=== PATIENT | female | born 1960 | race Caucasian/White ===

== ENCOUNTER 2017-05-25 03:51 | Emergency (ER) | payer OTHER ==
[2017-05-25] MEDS ORDERED: TORADOL IV ONE (04:11)
[2017-05-25] MEDS ORDERED: ZOFRAN IV ONE (04:11)
[2017-05-25 04:59] LABS: Anion Gap 19 mmol/L; BUN/Creatinine Ratio 30; Blood Urea Nitrogen 15 mg/dL (7-17); Calcium 8.9 mg/dL (8.4-10.2); Carbon Dioxide 24 mmol/L (22-30); Glucose 95 mg/dL (65-100); Potassium 3.8 mmol/L (3.6-5.0); Sodium 141 mmol/L (137-145)
[2017-05-25 05:01] LABS: Bilirubin,Urine NEG (Negative); Blood,Urine MOD (Negative); Ketones,Urine NEG (Negative); Leukocyte Esterase,Urine NEG (Negative); Mucus,Urine FEW /HPF; Nitrite,Urine NEG (Negative); Protein,Urine <15 mg/dL mg/dL (Negative); Urobilinogen,Urine < 2.0 mg/dL (<2.0)
[2017-05-25 05:08] LABS: Basophils % (Auto) 0.4 % (0.0-1.8); Eosinophils % (Auto) 3.2 % (0.0-4.3); Hematocrit 38.2 % (30.3-42.9); Hemoglobin 12.8 gm/dl (10.1-14.3); Mean Corpuscular HGB Conc 33 % (30-34); Mean Corpuscular Hemoglobin 29 pg (28-32); Mean Corpuscular Volume 88 fl (79-97); Platelet Count 217 K/mm3 (140-440); Red Blood Count 4.35 M/mm3 (3.65-5.03); Red Cell Distribution Width 13.3 % (13.2-15.2); White Blood Count 5.9 K/mm3 (4.5-11.0)
--- NOTE | 2017-05-25 10:08 | Emergency Department Report ---
ED Abdominal Pain HPI - General Chief Complaint: Abdominal Pain Stated Complaint: L SIDE SHARP PAIN Time Seen by Provider: 05/25/17 10:06 Source: patient Mode of arrival: Ambulatory Limitations: No Limitations - History of Present Illness Initial Comments: Patient states that she has arthritic pain which affects her right shoulder and her neck. She states this pain feels like it but is never affected her left flank. She complains of soreness in the left flank and right flank which she states is worse after eating but not associated with nausea and vomiting. He also states it's worse on movement. She's had no fever or chills. She denies any urinary symptoms. The pain is nonradiating. She also has lower back discomfort towards the middle of the back. MD Complaint: flank pain -: Gradual, days(s) Location: L flank, R flank Radiation: none Migration to: no migration Severity: moderate Severity scale (0 -10): 10 Quality: aching Consistency: constant Improves With: nothing Worsens With: movement Associated Symptoms: denies other symptoms - Related Data Previous Rx's Medication Instructions Recorded Last Taken Type traMADol [Ultram] 50 mg PO Q6HR PRN #14 tablet 05/25/17 Unknown Rx Allergies Allergy/AdvReac Type Severity Reaction Status Date / Time No Known Allergies Allergy Verified 05/25/17 10:12 ED Review of Systems ROS: Stated complaint: L SIDE SHARP PAIN Other details as noted in HPI Constitutional: denies: chills, fever Eyes: denies: eye pain, eye discharge, vision change ENT: denies: ear pain, throat pain Respiratory: denies: cough, shortness of breath, wheezing Cardiovascular: denies: chest pain, palpitations Endocrine: no symptoms reported Gastrointestinal: denies: abdominal pain, nausea, diarrhea Genitourinary: denies: urgency, dysuria, discharge Musculoskeletal: as per HPI, back pain. denies: joint swelling, arthralgia Skin: denies: rash, lesions Neurological: denies: headache, weakness, paresthesias Psychiatric: denies: anxiety, depression Hematological/Lymphatic: denies: easy bleeding, easy bruising ED Past Medical Hx - Past Medical History Previous Medical History?: No - Surgical History Additional Surgical History: Hysterectomy, Hernia Repair - Social History Smoking Status: Never Smoker Substance Use Type: None - Medications Home Medications: Home Medications Medication Instructions Recorded Confirmed Last Taken Type traMADol [Ultram] 50 mg PO Q6HR PRN #14 tablet 05/25/17 Unknown Rx ED Physical Exam - General Limitations: No Limitations General appearance: alert, in no apparent distress - Head Head exam: Present: atraumatic, normocephalic - Eye Eye exam: Present: normal appearance. Absent: scleral icterus - ENT ENT exam: Present: mucous membranes moist - Neck Neck exam: Present: normal inspection. Absent: tenderness, meningismus - Respiratory Respiratory exam: Present: normal lung sounds bilaterally. Absent: respiratory distress - Cardiovascular Cardiovascular Exam: Present: regular rate, normal rhythm. Absent: systolic murmur, diastolic murmur, rubs, gallop - GI/Abdominal GI/Abdominal exam: Present: soft, normal bowel sounds. Absent: distended, tenderness, guarding, rebound, rigid - Extremities Exam Extremities exam: Present: normal inspection, normal capillary refill. Absent: tenderness, pedal edema, joint swelling, calf tenderness - Back Exam Back exam: Present: normal inspection, paraspinal tenderness, other (straight leg raise negative bilaterally). Absent: CVA tenderness (R), CVA tenderness (L) , muscle spasm, vertebral tenderness - Neurological Exam Neurological exam: Present: alert, oriented X3, CN II-XII intact. Absent: motor sensory deficit - Psychiatric Psychiatric exam: Present: normal affect, normal mood - Skin Skin exam: Present: warm, dry, intact, normal color. Absent: rash ED Course Vital Signs 05/25/17 05/25/17 05/25/17 04:05 10:02 10:30 Temperature 97.6 F Pulse Rate 65 62 Respiratory 16 18 Rate Blood Pressure 125/66 Blood Pressure 137/69 [Left] O2 Sat by Pulse 98 96 100 Oximetry 05/25/17 05/25/17 05/25/17 10:41 10:45 10:54 Temperature Pulse Rate Respiratory 18 Rate Blood Pressure 137/69 137/69 Blood Pressure [Left] O2 Sat by Pulse 98 100 Oximetry - Reevaluation(s) Reevaluation #1: Patient appeared comfortable in the emergency department. She was given Ultram for analgesia. She is referred back to her primary care provider. Her workup was essentially negative. 05/25/17 11:15 ED Medical Decision Making - Lab Data Result diagrams: 05/25/17 04:12 05/25/17 04:12 Laboratory Results - last 24 hr 10/28/17 10/28/17 10/28/17 04:12 04:12 04:34 WBC 5.9 RBC 4.35 Hgb 12.8 Hct 38.2 MCV 88 MCH 29 MCHC 33 RDW 13.3 Plt Count 217 Lymph % (Auto) 30.9 [place] % (Auto) 7.5 H Eos % (Auto) 3.2 Baso % (Auto) 0.4 Lymph # 1.8 [place] # 0.4 Eos # 0.2 Baso # 0.0 Seg Neutrophils % 58.0 Seg Neutrophils # 3.4 Sodium 141 Potassium 3.8 Chloride 102.0 Carbon Dioxide 24 Anion Gap 19 BUN 15 Creatinine 0.5 L Estimated GFR > 60 BUN/Creatinine Ratio 30 Glucose 95 Calcium 8.9 Urine Color Yellow Urine Turbidity Clear Urine pH 6.0 Ur Specific [place] 1.013 Urine Protein <15 mg/dl Urine Glucose (UA) Neg Urine Ketones Neg Urine Blood Mod Urine Nitrite Neg Urine Bilirubin Neg Urine Urobilinogen < 2.0 Ur Leukocyte Esterase Neg Urine WBC (Auto) 1.0 Urine RBC (Auto) 6.0 U Epithel Cells (Auto) 5.0 Urine Mucus Few - Radiology Data Radiology results: report reviewed interpreted by me: Normal CT per radiologist Critical care attestation.: If time is entered above; I have spent that time in minutes in the direct care of this critically ill patient, excluding procedure time. ED Disposition Clinical Impression: Musculoskeletal back pain Disposition: - TO HOME OR SELFCARE Is pt being admited?: No Does the pt Need Aspirin: No Condition: Stable Instructions: Abdominal Pain (ED), Musculoskeletal Pain (ED) Additional Instructions: Follow-up with her primary care provider. Return any acute change or problem. Prescriptions: traMADol [Ultram] 50 mg PO Q6HR PRN #14 tablet PRN Reason: Pain Referrals: KRISTA CANAS MD [Primary Care Provider] - 2-3 Days Time of Disposition: 11:16
--- NOTE | 2017-05-25 10:49 | Cat Scan Report ---
CT scan of abdomen and pelvis without IV contrast: History: Flank pain. Findings: Normal lung bases. No pleural pericardial effusion. Normal liver spleen pancreas and gallbladder. Normal adrenals kidney parenchyma and bladder. No calculi or hydronephrosis. Gaseous colon with moderate volume stool in colon. No evidence of appendicitis or diverticulitis. Impression: Essentially negative CT scan of abdomen and CT scan of pelvis.
[2017-05-25] MEDS ORDERED: ULTRAM PO ONE (11:17)
[2017-05-25 11:39] VITALS: BP 126/60
== END 2017-05-25 11:40 | disposition home or self-care (01) ==
LOC: ED 03:51
DX: R10.9 Unspecified abdominal pain (principal); M54.5 Low back pain
CPT/HCPCS: 36415; 74176; 80048; 81001; 85025; 96374; 96375; 99284; J1885; J2405